=== PATIENT | female | born 1995 | race African-American/Black ===

== ENCOUNTER 2017-02-13 22:28 | Emergency (ER) | payer OTHER ==
[~2017-02-13] VITALS: Ht 167.6 cm; Wt 84.3 kg
[2017-02-13 22:31] VITALS: BP 122/79
[2017-02-13] MEDS ORDERED: SING10TA32 PO (22:40)
[2017-02-13] MEDS ORDERED: ADV250INH INH (22:40)
== END 2017-02-14 03:02 | disposition left against medical advice (07) ==
LOC: M ED 22:28
DX: N93.9 Abnormal uterine and vaginal bleeding, unspecified (principal); Z53.21 Procedure and treatment not carried out due to patient leaving prior to being seen by health care provider

== ENCOUNTER 2017-05-17 16:02 | Emergency (ER) | payer OTHER ==
[~2017-05-17] VITALS: Ht 167.6 cm; Wt 84.6 kg
[2017-05-17 16:02] VITALS: BP 133/78
[~2017-05-17 16:02] MED LIST: ADV250INH INH; SING10TA32 PO
[2017-05-17] MEDS ORDERED: CLEO300C2 PO (18:13)
[2017-05-17] MEDS ORDERED: NORCOTAB PO (18:13)
== END 2017-05-17 18:20 | disposition home or self-care (01) ==
LOC: M ED 16:02
DX: L02.31 Cutaneous abscess of buttock (principal); L73.9 Follicular disorder, unspecified; F17.200 Nicotine dependence, unspecified, uncomplicated; Z79.899 Other long term (current) drug therapy

== ENCOUNTER 2017-05-29 04:40 | Emergency (ER) | payer OTHER ==
[~2017-05-29] VITALS: Ht 167.6 cm; Wt 80.5 kg
[~2017-05-29 04:40] MED LIST changes: +CLEO300C2 PO; +NORCOTAB PO
[2017-05-29] MEDS ORDERED: IPRATROPIUM 0.5MG/ALBUTEROL 2.5MG INH SOL UD 3ML (DUONEB)(J7620) As Ordered ONE (04:56)
[2017-05-29] MEDS: IPRATROPIUM 0.5MG/ALBUTEROL 2.5MG INH SOL UD 3ML (DUONEB)(J7620) NEB SCH (05:15)
[2017-05-29 05:29] LABS: BASO % 0.5 % (0.0-1.0); EOS # 0.4 10^3/uL (0.0-0.50); EOS % 5.1 % (0.0-3.0); IMMATURE GRANULOCYTE % 0.1 % (0-0); LYMPH % 36.5 % (24.0-44.0); MEAN CORPUSCULAR HGB CONC 33.2 g/dl (32.0-36.5); MEAN CORPUSCULAR VOLUME 90.3 fl (80.0-96.0); MONO # 0.5 10^3/uL (0.0-0.8); MONO % 6.3 % (0.0-5.0); NEUTROPHILS # 4.2 10^3/uL (1.8-7.7); NEUTROPHILS % 51.5 % (36.0-66.0); PLATELET COUNT, AUTOMATED 338 10^3/uL (150-450); RED CELL DISTRIBUTION WIDTH 12.6 % (11.5-14.5); WHITE BLOOD COUNT 8.1 10^3/uL (4.0-10.0)
[2017-05-29] MEDS ORDERED: MAG SULF 1GM/100ML (MAG RUN) 1 GM in APPROPRIATE DILUENT 1 EA IV ONE (05:30)
[2017-05-29] MEDS ORDERED: methylPREDNISolone INJ 125 MG/2 ML VIAL (J2930) IV ONE (05:30)
[2017-05-29 05:42] LABS: ANION GAP 7 MEQ/L (8-16); BLOOD UREA NITROGEN 15 MG/DL (7-18); CALCIUM LEVEL 8.6 MG/DL (8.5-10.1); CARBON DIOXIDE LEVEL 27 MEQ/L (21-32); CHLORIDE LEVEL 107 MEQ/L (98-107); CREATININE FOR GFR 0.77 MG/DL (0.55-1.02); GLUCOSE, FASTING 100 MG/DL (70-105); POTASSIUM SERUM 3.7 MEQ/L (3.5-5.1); SODIUM LEVEL 141 MEQ/L (136-145)
[2017-05-29] MEDS ORDERED: PRED20TA PO (07:07)
[2017-05-29] MEDS ORDERED: ALBUTEROL 90 MCG/ACT 8GM HFA INHALER INH ONE (07:15)
[2017-05-29 07:49] VITALS: BP 160/123
--- NOTE | 2017-05-29 08:13 | ECGEPIP ---
Stationary ECG Study [facility] - ED Test Date: 2017-05-29 Pat Name: JENNY CHE Department: Room: - Gender: F Public Health Officer: mariel : 1995 Requested By: BREONNA Ibarra Order Number: [id number] Reading MD: Savanna Alfaro Measurements Intervals [place] Rate: 93 P: 28 FL: 166 QRS: 51 QRSD: 88 T: 30 QT: 355 QTc: 444 Interpretive Statements SINUS RHYTHM Electronically Signed On 05-29-2017 8:13:42 EDT by Savanna Alfaro
[2017-05-29 08:35] VITALS: O2SAT 99
--- NOTE | 2017-06-02 09:01 | REP ---
PA and lateral chest: There are no comparisons. The lung post are clear. The cardiac size is normal The [place], mediastinum, and bony thorax are unremarkable. Impression: Negative PA and lateral chest. Signed by Jamir La MD 05/29/2017 08:18 A
== END 2017-05-29 08:44 | disposition home or self-care (01) ==
LOC: M ED 04:40
DX: J45.901 Unspecified asthma with (acute) exacerbation (principal); F17.200 Nicotine dependence, unspecified, uncomplicated
CPT/HCPCS: 71020; 80048; 85025; 87040; 87804; 93005; 93041; 94640; 94760; 96374; 96375; 99285; J2930; J3475

== ENCOUNTER 2017-09-18 04:36 | Emergency (ER) | payer OTHER ==
[2017-09-18] MEDS ORDERED: dexameTHASONE 20 MG/5 ML VIAL (J1100) IV (05:00)
[2017-09-18] MEDS: IPRATROPIUM 0.5MG/ALBUTEROL 2.5MG INH SOL UD 3ML (DUONEB)(J7620) NEB ×3 (05:11)
[2017-09-18] MEDS: dexameTHASONE 20 MG/5 ML VIAL (J1100) IV (05:20)
== END 2017-09-18 06:39 | disposition home or self-care (01) ==
LOC: M ED 04:36
DX: J45.901 Unspecified asthma with (acute) exacerbation (principal); Z79.899 Other long term (current) drug therapy
CPT/HCPCS: J1100

== ENCOUNTER 2017-09-18 09:51 | Emergency (ER) | payer OTHER ==
[2017-09-18] MEDS ORDERED: ALBUTEROL 90 MCG/ACT 8GM HFA INHALER INH (10:30)
[2017-09-18] MEDS ORDERED: predniSONE 20 MG TAB PO (10:30)
[2017-09-18] MEDS ORDERED: AUGMENTIN 875 MG TAB PO (10:30)
== END 2017-09-18 10:38 | disposition home or self-care (01) ==
LOC: M ED 09:51
DX: J06.9 Acute upper respiratory infection, unspecified (principal); J01.80 Other acute sinusitis; J45.901 Unspecified asthma with (acute) exacerbation; Z79.899 Other long term (current) drug therapy
CPT/HCPCS: 99284

== ENCOUNTER 2018-03-29 00:34 | Emergency (ER) | payer OTHER ==
[2018-03-29] MEDS: diphenhydrAMINE INJ 50MG/ML VIAL (J1200) IM (00:38)
[2018-03-29] MEDS: HALOPERIDOL 5 MG/ML VIAL (J1630) IM (00:38)
[2018-03-29 01:03] LABS: HEMOGLOBIN 12.2 g/dl (12.0-15.5); MEAN CORPUSCULAR HEMOGLOBIN 27.8 pg (27.0-33.0); MEAN CORPUSCULAR HGB CONC 32.1 g/dl (32.0-36.5); MEAN CORPUSCULAR VOLUME 86.6 fl (80.0-96.0); PLATELET COUNT, AUTOMATED 305 10^3/uL (150-450); RED BLOOD COUNT 4.39 10^6/uL (4.00-5.40); RED CELL DISTRIBUTION WIDTH 15.2 % (11.5-14.5); WHITE BLOOD COUNT 7.9 10^3/uL (4.0-10.0)
[2018-03-29 01:13] LABS: CONTROL LINE HCG INT CTR LINE PRESENT; HCG, SERUM QUALITATIVE NEGATIVE (NEGATIVE)
[2018-03-29 01:30] LABS: ALBUMIN 3.8 GM/DL (3.2-5.2); ALBUMIN/GLOBULIN RATIO 1.09 (1.00-1.93); ALKALINE PHOSPHATASE 78 U/L (45-117); ALT/SGPT 19 U/L (12-78); ANION GAP 10 MEQ/L (8-16); AST/SGOT 16 U/L (7-37); BILIRUBIN,DIRECT < 0.1 MG/DL (0.0-0.2); BILIRUBIN,TOTAL 0.3 MG/DL (0.2-1.0); BLOOD UREA NITROGEN 17 MG/DL (7-18); CALCIUM LEVEL 8.7 MG/DL (8.5-10.1); CARBON DIOXIDE LEVEL 22 MEQ/L (21-32); CHLORIDE LEVEL 111 MEQ/L (98-107); CPK CREATINE PHOSPHOKINASE 358 U/L (26-192); CREATININE FOR GFR 0.85 MG/DL (0.55-1.30); ETHYL ALCOHOL (ETHANOL) 0.007 % (0.000-0.010); GLUCOSE, FASTING 118 MG/DL (70-100); POTASSIUM SERUM 3.5 MEQ/L (3.5-5.1); SALICYLATE LEVEL < 1.7 MG/DL (5.0-30.0); SODIUM LEVEL 143 MEQ/L (136-145); TOTAL PROTEIN 7.3 GM/DL (6.4-8.2)
[2018-03-29 01:31] LABS: ACETAMINOPHEN LEVEL < 2.0 UG/ML (10.0-30.0)
[2018-03-29 02:29] LABS: AMPHETAMINES LEVEL URINE NEGATIVE (NEGATIVE); BARBITURATES URINE NEGATIVE (NEGATIVE); BENZODIAZEPINES URINE NEGATIVE (NEGATIVE); CANNABINOIDS URINE POSITIVE (NEGATIVE); COCAINE METABOLITE URINE NEGATIVE (NEGATIVE); METHADONE URINE NEGATIVE (NEGATIVE); OPIATES URINE NEGATIVE (NEGATIVE); PHENCYCLIDINE URINE NEGATIVE (NEGATIVE)
== END 2018-03-29 10:51 | disposition home or self-care (01) ==
LOC: M ED 00:34
DX: F43.20 Adjustment disorder, unspecified (principal); F12.10 Cannabis abuse, uncomplicated
CPT/HCPCS: J1200

== ENCOUNTER 2018-05-09 15:35 | Emergency (ER) | payer OTHER ==
[2018-05-09] MEDS: predniSONE 20 MG TAB PO (16:07)
[2018-05-09] MEDS: ALBUTEROL SULFATE 2.5 MG/0.5 ML INH NEB SOLN NEB (16:10)
[2018-05-09] MEDS: IPRATROPIUM 0.5MG/ALBUTEROL 2.5MG INH SOL UD 3ML (DUONEB)(J7620) NEB (16:10)
== END 2018-05-09 17:15 | disposition home or self-care (01) ==
LOC: M ED 15:35
DX: J45.901 Unspecified asthma with (acute) exacerbation (principal); F90.9 Attention-deficit hyperactivity disorder, unspecified type; F31.9 Bipolar disorder, unspecified; Z79.899 Other long term (current) drug therapy; Z79.51 Long term (current) use of inhaled steroids
CPT/HCPCS: 71046

== ENCOUNTER 2018-05-19 17:26 | Emergency (ER) | payer OTHER ==
[2018-05-19 18:47] LABS: HEMATOCRIT 44.7 % (36.0-47.0); HEMOGLOBIN 14.3 g/dl (12.0-15.5); MEAN CORPUSCULAR HEMOGLOBIN 28.1 pg (27.0-33.0); PLATELET COUNT, AUTOMATED 364 10^3/uL (150-450); RED BLOOD COUNT 5.08 10^6/uL (4.00-5.40); RED CELL DISTRIBUTION WIDTH 15.1 % (11.5-14.5); WHITE BLOOD COUNT 11.6 10^3/uL (4.0-10.0)
[2018-05-19 19:06] LABS: AMPHETAMINES LEVEL URINE NEGATIVE (NEGATIVE); BARBITURATES URINE NEGATIVE (NEGATIVE); BENZODIAZEPINES URINE POSITIVE (NEGATIVE); CANNABINOIDS URINE POSITIVE (NEGATIVE); COCAINE METABOLITE URINE NEGATIVE (NEGATIVE); METHADONE URINE NEGATIVE (NEGATIVE); OPIATES URINE NEGATIVE (NEGATIVE); PHENCYCLIDINE URINE NEGATIVE (NEGATIVE)
[2018-05-19 19:17] LABS: CONTROL LINE HCG INT CTR LINE PRESENT; HCG, SERUM QUALITATIVE NEGATIVE (NEGATIVE)
[2018-05-19 20:00] LABS: ACETAMINOPHEN LEVEL < 2.0 UG/ML (10.0-30.0); ALBUMIN 3.9 GM/DL (3.2-5.2); ALKALINE PHOSPHATASE 87 U/L (45-117); ALT/SGPT 16 U/L (12-78); ANION GAP 9 MEQ/L (8-16); AST/SGOT 12 U/L (7-37); BILIRUBIN,DIRECT < 0.1 MG/DL (0.0-0.2); BILIRUBIN,TOTAL 0.2 MG/DL (0.2-1.0); BLOOD UREA NITROGEN 16 MG/DL (7-18); CALCIUM LEVEL 8.4 MG/DL (8.5-10.1); CARBON DIOXIDE LEVEL 25 MEQ/L (21-32); CHLORIDE LEVEL 109 MEQ/L (98-107); CREATININE FOR GFR 0.93 MG/DL (0.55-1.30); ETHYL ALCOHOL (ETHANOL) < 0.003 % (0.000-0.010); GLUCOSE, FASTING 82 MG/DL (70-100); POTASSIUM SERUM 3.5 MEQ/L (3.5-5.1); SALICYLATE LEVEL < 1.7 MG/DL (5.0-30.0); SODIUM LEVEL 143 MEQ/L (136-145); THYROID STIMULATING HORMONE 0.647 uIU/ML (0.463-3.98); TOTAL PROTEIN 7.8 GM/DL (6.4-8.2)
== END 2018-05-19 23:10 | disposition home or self-care (01) ==
LOC: M ED 17:26
DX: F43.0 Acute stress reaction (principal); F32.9 Major depressive disorder, single episode, unspecified; J45.909 Unspecified asthma, uncomplicated; K52.9 Noninfective gastroenteritis and colitis, unspecified; F17.200 Nicotine dependence, unspecified, uncomplicated; Z79.899 Other long term (current) drug therapy; Z79.52 Long term (current) use of systemic steroids; Z79.51 Long term (current) use of inhaled steroids
CPT/HCPCS: G0480

== ENCOUNTER 2018-06-23 20:35 | Emergency (ER) | payer OTHER ==
[2018-06-23] MEDS: dexameTHASONE 20 MG/5 ML VIAL (J1100) IV (21:20)
== END 2018-06-23 21:51 | disposition home or self-care (01) ==
LOC: M ED 20:35
DX: J45.901 Unspecified asthma with (acute) exacerbation (principal); F17.210 Nicotine dependence, cigarettes, uncomplicated; Z79.899 Other long term (current) drug therapy
CPT/HCPCS: J1100

== ENCOUNTER 2018-07-03 23:07 | Emergency (ER) | payer OTHER ==
[2018-07-04] MEDS: ALBUTEROL 90 MCG/ACT 8GM HFA INHALER INH (00:11)
== END 2018-07-04 00:12 | disposition home or self-care (01) ==
LOC: M ED 07-04 00:12
DX: F43.20 Adjustment disorder, unspecified (principal); J45.909 Unspecified asthma, uncomplicated
CPT/HCPCS: 99284

== ENCOUNTER 2018-09-06 08:44 | Emergency (ER) | payer OTHER, MEDICAID ==
[~2018-09-06] VITALS: Ht 170.2 cm; Wt 84.1 kg
[~2018-09-06 08:44] MED LIST changes: +ALBU83IN INH; +AUGM875T28 PO; +IPRA0.00 NEB; +MONT10TA2 PO; +PRED20TA PO; +VENTAER INH
[2018-09-06] MEDS ORDERED: ADV250INH INH ×2 (08:53→12:53)
[2018-09-06] MEDS ORDERED: methylPREDNISolone INJ 125 MG/2 ML VIAL (J2930) IV ONE (09:15)
[2018-09-06] MEDS: ALBUTEROL SULFATE 2.5 MG/0.5 ML INH NEB SOLN NEB PRN ×3 (09:23→09:49)
--- NOTE | 2018-09-06 09:36 | REP ---
Clinical: Cough and dyspnea . Comparison: 06/23/2018 . Technique: PA and lateral. Findings: The mediastinum and cardiac silhouette are normal. The lung post are clear and without acute consolidation, effusion, or pneumothorax. The skeletal structures are intact and normal. Impression: 1. No acute cardiopulmonary process. Electronically Signed by Teodoro Dai MD 09/06/2018 09:28 A
[2018-09-06 09:47] LABS: BASO % 0.7 % (0.0-1.0); EOS # 0.5 10^3/uL (0.0-0.50); EOS % 8.2 % (0.0-3.0); HEMOGLOBIN 14.2 g/dl (12.0-15.5); LYMPH # 2.2 10^3/uL (1.5-6.5); LYMPH % 36.3 % (24.0-44.0); MEAN CORPUSCULAR HEMOGLOBIN 28.9 pg (27.0-33.0); MEAN CORPUSCULAR HGB CONC 32.3 g/dl (32.0-36.5); MEAN CORPUSCULAR VOLUME 89.4 fl (80.0-96.0); MONO # 0.5 10^3/uL (0.0-0.8); MONO % 7.5 % (0.0-5.0); NEUTROPHILS # 2.8 10^3/uL (1.8-7.7); NEUTROPHILS % 47.1 % (36.0-66.0); PLATELET COUNT, AUTOMATED 319 10^3/uL (150-450); RED BLOOD COUNT 4.92 10^6/uL (4.00-5.40)
[2018-09-06 10:10] LABS: BLOOD UREA NITROGEN 9 MG/DL (7-18); CALCIUM LEVEL 8.9 MG/DL (8.5-10.1); CARBON DIOXIDE LEVEL 27 MEQ/L (21-32); CHLORIDE LEVEL 105 MEQ/L (98-107); CREATININE FOR GFR 0.78 MG/DL (0.55-1.30); GLUCOSE, FASTING 109 MG/DL (70-100); POTASSIUM SERUM 4.3 MEQ/L (3.5-5.1); SODIUM LEVEL 139 MEQ/L (136-145)
[2018-09-06] MEDS: IPRATROPIUM 0.5MG/ALBUTEROL 2.5MG INH SOL UD 3ML (DUONEB)(J7620) NEB PRN ×2 (12:00→12:21)
[2018-09-06] MEDS ORDERED: IPRA0.00 NEB (12:53)
[2018-09-06] MEDS ORDERED: COMP1MIS3 XX (12:53)
[2018-09-06] MEDS ORDERED: PRED20TA PO (12:53)
[2018-09-06] MEDS ORDERED: VENTAER INH (12:53)
[2018-09-06] MEDS ORDERED: SING10TA32 PO (12:53)
[2018-09-06 13:16] VITALS: BP 135/86
== END 2018-09-06 13:26 | disposition home or self-care (01) ==
LOC: M ED 08:44
DX: J45.901 Unspecified asthma with (acute) exacerbation (principal); F90.9 Attention-deficit hyperactivity disorder, unspecified type; F31.9 Bipolar disorder, unspecified; K52.9 Noninfective gastroenteritis and colitis, unspecified; Z79.899 Other long term (current) drug therapy; Z79.51 Long term (current) use of inhaled steroids
CPT/HCPCS: 36415; 71046; 80048; 85025; 94640; 96374; 99284; J2930

== ENCOUNTER 2018-09-24 20:35 | Inpatient (IN) | payer OTHER, MEDICAID ==
[~2018-09-24] VITALS: Ht 172.7 cm; Wt 82.4 kg
[~2018-09-24 20:35] MED LIST changes: +COMP1MIS3 XX
[2018-09-24] MEDS ORDERED: ALBUTEROL SULFATE 2.5 MG/0.5 ML INH NEB SOLN NEB ONE (20:45)
[2018-09-24] MEDS ORDERED: MAG SULF 1GM/100ML (MAG RUN) 1 GM in APPROPRIATE DILUENT 1 EA IV ONE (21:00)
[2018-09-24] MEDS ORDERED: BUDESONIDE 0.5 MG/2 ML INHALATION SUSPENSION INH ONE (21:00)
[2018-09-24] MEDS ORDERED: ALBUTEROL SULFATE 2.5 MG/0.5 ML INH NEB SOLN INH ONE (22:15)
[2018-09-24 22:23] LABS: BASO # 0.1 10^3/uL (0.0-0.2); EOS # 0.9 10^3/uL (0.0-0.50); EOS % 8.8 % (0.0-3.0); HEMATOCRIT 44.5 % (36.0-47.0); HEMOGLOBIN 14.2 g/dl (12.0-15.5); LYMPH # 4.2 10^3/uL (1.5-6.5); LYMPH % 42.1 % (24.0-44.0); MEAN CORPUSCULAR HEMOGLOBIN 29.5 pg (27.0-33.0); MEAN CORPUSCULAR HGB CONC 31.9 g/dl (32.0-36.5); MEAN CORPUSCULAR VOLUME 92.5 fl (80.0-96.0); MONO # 0.9 10^3/uL (0.0-0.8); NEUTROPHILS # 3.9 10^3/uL (1.8-7.7); NEUTROPHILS % 38.8 % (36.0-66.0); PLATELET COUNT, AUTOMATED 348 10^3/uL (150-450); RED BLOOD COUNT 4.81 10^6/uL (4.00-5.40); WHITE BLOOD COUNT 10.1 10^3/uL (4.0-10.0)
[2018-09-24 22:27] LABS: VENOUS BASE EXCESS -3.3 (-2.0-2.0); VENOUS HCO3 26.3 MEQ/L (23.0-27.0); VENOUS O2 SATURATION 73.6 % (60.0-80.0); VENOUS PARTIAL PRESSURE CO2 67.3 mmHg (38.0-50.0); VENOUS PARTIAL PRESSURE O2 49.5 mmHg (30.0-50.0); VENOUS PH 7.209 UNITS (7.330-7.430); VENOUS STANDARD HCO3 21.1 MEQ/L; VENOUS TOTAL CO2 28.3 MEQ/L (24.0-28.0)
[2018-09-24] MEDS ORDERED: VENTAER INH (22:27)
[2018-09-24] MEDS ORDERED: IPRA0.00 INH (22:27)
[2018-09-24 22:29] LABS: BLOOD UREA NITROGEN 12 MG/DL (7-18); CALCIUM LEVEL 9.1 MG/DL (8.5-10.1); CARBON DIOXIDE LEVEL 28 MEQ/L (21-32); CHLORIDE LEVEL 106 MEQ/L (98-107); GLUCOSE, FASTING 96 MG/DL (70-100); POTASSIUM SERUM 4.7 MEQ/L (3.5-5.1); SODIUM LEVEL 139 MEQ/L (136-145)
[2018-09-24] MEDS ORDERED: PRED20TA PO (22:30)
[2018-09-24] MEDS ORDERED: MONT10TA2 PO (22:30)
[2018-09-24 23:24] LABS: ABG BASE EXCESS -2.4 (-2.0-2.0); ABG HCO3 23.6 MEQ/L (22.0-26.0); ABG O2 SATURATION 94.2 % (95.0-99.0); ABG PARTIAL PRESSURE O2 74.7 mmHg (75.0-100.0); ABG STANDARD HCO3 22.4 MEQ/L (22.0-26.0); ABG pH (ARTERIAL) 7.338 UNITS (7.350-7.450)
[2018-09-25] VITALS (12 sets, daily range): BP systolic 119–151; BP diastolic 59–80; O2SAT 93–99
[2018-09-25] MEDS: ADVAIR HFA 115/21MCG INHALER INH SCH ×3 (00:12→20:29)
[2018-09-25] MEDS ORDERED: GLUCAGON FOR INJ 1 MG VIAL (J1610) SC PRN (00:15)
[2018-09-25] MEDS ORDERED: ALBUTEROL SULFATE 2.5 MG/0.5 ML INH NEB SOLN NEB PRN (00:15)
[2018-09-25] MEDS ORDERED: GLUCOSE 4 GM CHEW TABLET PO PRN (00:15)
[2018-09-25] MEDS ORDERED: DEXTROSE 50% 50 ML SYRINGE IV PRN (00:15)
[2018-09-25] MEDS ORDERED: ACETAMINOPHEN TAB 650MG DOSE (2X325MG) PO PRN (00:15)
[2018-09-25] MEDS: methylPREDNISolone INJ 125 MG/2 ML VIAL (J2930) IV SCH ×4 (00:19→18:23)
[2018-09-25] MEDS: HumaLOG INSULIN (NovoLOG) PER UNIT SC SCH ×5 (00:47→18:23)
[2018-09-25 02:00] LABS: ABG BASE EXCESS -2.9 (-2.0-2.0); ABG HCO3 21.8 MEQ/L (22.0-26.0); ABG O2 SATURATION 91.2 % (95.0-99.0); ABG PARTIAL PRESSURE O2 63.7 mmHg (75.0-100.0); ABG STANDARD HCO3 21.9 MEQ/L (22.0-26.0); ABG pH (ARTERIAL) 7.377 UNITS (7.350-7.450)
--- NOTE | 2018-09-25 02:14 | REP ---
Clinical: Cough and dyspnea . Comparison: 09/06/2018 . Findings: The mediastinum and cardiac silhouette are stable and within normal limits for portable technique. The lung post are clear without acute consolidation, effusion, or pneumothorax. Skeletal structures are intact. Impression: No acute cardiopulmonary process appreciated. Electronically Signed by Teodoro Dai MD 09/25/2018 02:04 A
[2018-09-25] MEDS ORDERED: INFLUENZA QUADRIVALENT PF VACCINE 0.5ML SYRINGE (90686) IM SCH (03:45)
[2018-09-25] MEDS: IPRATROPIUM 0.5MG/ALBUTEROL 2.5MG INH SOL UD 3ML (DUONEB)(J7620) NEB SCH ×6 (04:28→23:13)
[2018-09-25] MEDS: HEPARIN SOD (PORCINE) 5000 UNITS/ML VIAL SC SCH ×3 (05:59→22:00)
--- NOTE | 2018-09-25 07:03 | HPE ---
DATE OF ADMISSION: 09/25/2018 CHIEF COMPLAINT: Progressively worsening dyspnea on exertion over the past two weeks and nonproductive cough. HISTORY OF PRESENT ILLNESS: The patient is a 22-year-old female. She has a significant past medical history of severe persistent asthma. Also, she states she has colitis. I am unclear if she actually has history of colitis. She is not on any medications. She has never had a colonoscopy. She presents to the emergency room she states with worsening dyspnea on exertion, worsening respiratory status progressively worsening over the last two weeks. She states she ran out of her medication and came to the emergency room which did nebulizers two weeks ago. She was given refills for her medication, all except the Singulair. Her symptoms improved temporarily and continued to worsen with nonproductive cough, shortness of breath and wheezing. She presented to Urgent Care two days ago and was given her Singulair and again sent home. She is back to the emergency room tonight, again, with worsening respiratory status, worsening dyspnea, wheezing and nonproductive cough. No fevers or chills. Respiratory panel is negative for the flu. She states she uses her inhaler almost multiple times a day. She gets multiple night time awakening per week. Asthma is clearly not under control. She has never been intubated. Notably in her history, she has recently brought pets into her home. She has kittens, which likely might be the trigger for her worsening asthma. She denies any abdominal pain, constipation, diarrhea or urinary symptoms. She does endorse chest tightness, but no chest pain. PAST MEDICAL HISTORY: See history of present illness (HPI). PAST SURGICAL HISTORY: None. ALLERGIES: No known drug allergies. SOCIAL HISTORY: Former smoker. Denies alcohol or illicit drug use. FAMILY HISTORY: Noncontributory. HOME MEDICATIONS: - albuterol - Advair - Singulair REVIEW OF SYSTEMS: A 12-point review of systems was completed, all of which were negative except those listed in the HPI. ADMISSION VITAL SIGNS: Temperature 99, pulse 144, respirations 28, blood pressure 163/82, satting at 96% on 2 liters nasal cannula. PHYSICAL EXAMINATION: General: She is tachypneic in mild respiratory distress. Head is normocephalic, atraumatic. Eyes: Extraocular movements are intact. Pupils equal, round and reactive to light. Neck is supple. No jugular venous pulse (JVP). Lungs: Diffuse wheezing. Use of accessory muscles of respirations. Notably tachypneic. Cardiovascular: Tachycardiac. Normal S1 and S2. No murmurs, gallops or rub. The abdomen is soft, nontender, nondistended. Positive bowel sounds. No rebound. No guarding. Extremities: No pitting edema or calf tenderness. Skin is intact. No rashes, lesions or breakdowns. Neurological Exam: She is alert and oriented times three with no focal deficits. LABS AND IMAGING DONE IN THE EMERGENCY ROOM: White count 10, hemoglobin/hematocrit (H/H) 14/44, platelet count 348. Blood gas after treatment with nebulizers, Solu-Medrol and magnesium, were 7.33/45/74/23/94. Chemistries: BUN and creatinine of 12 over 0.8. Respiratory panel was negative. Chest x-ray shows some scarring, hyperinflation, but no acute disease. ASSESSMENT AND PLAN: 1. Acute respiratory failure with hypoxia, likely secondary to acute asthma exacerbation and severe asthma exacerbation. The knowledge architect was asked to evaluate the patient and made a recommendation for continuous Heliox 70/30. She is also going to get nebulizers, Heliox driven nebulizers, oxygen as needed, Solu-Medrol 60 every 6 and insulin sliding scale while on Solu-Medrol. Baseline peak flow, she is unaware of. She will get daily peak flows. Albuterol as needed every hour. I believe the patient needs to be followed closely. Will repeat her blood gas in 3 hours. The patient was spoken to about the prospects of intubation. She is extremely tachypneic. Normalizing her PcO2 within the case of asthma is a poor prognosis. She was made aware of the situation and will be monitored closely in the intensive care unit. Pulmonary critical care team is aware. 2. Colitis, unspecified. I am unclear if this is a true diagnosis. She has never had a colonoscopy. Will continue to follow the patient. She is not on any medications. 3. Supportive deep vein thrombosis (DVT) prophylaxis. Heparin subcutaneous. 4. Gastrointestinal (GI) prophylaxis. Protonix while on high dose steroids. 5. Diet. Regular. 6. To be admitted to the intensive care unit. .
[2018-09-25 09:18] LABS: HEMATOCRIT 44.3 % (36.0-47.0); HEMOGLOBIN 14.6 g/dl (12.0-15.5); MEAN CORPUSCULAR HEMOGLOBIN 29.6 pg (27.0-33.0); MEAN CORPUSCULAR VOLUME 89.7 fl (80.0-96.0); PLATELET COUNT, AUTOMATED 376 10^3/uL (150-450); RED BLOOD COUNT 4.94 10^6/uL (4.00-5.40); WHITE BLOOD COUNT 12.4 10^3/uL (4.0-10.0)
[2018-09-25 09:43] LABS: ALBUMIN 4.3 GM/DL (3.2-5.2); ALT/SGPT 23 U/L (12-78); BILIRUBIN,TOTAL 0.3 MG/DL (0.2-1.0); BLOOD UREA NITROGEN 16 MG/DL (7-18); CARBON DIOXIDE LEVEL 24 MEQ/L (21-32); CHLORIDE LEVEL 103 MEQ/L (98-107); CREATININE FOR GFR 0.84 MG/DL (0.55-1.30); GLUCOSE, FASTING 122 MG/DL (70-100); POTASSIUM SERUM 4.5 MEQ/L (3.5-5.1); SODIUM LEVEL 136 MEQ/L (136-145); TOTAL PROTEIN 8.3 GM/DL (6.4-8.2)
[2018-09-25] MEDS: MONTELUKAST 10 MG TAB PO SCH (09:57)
--- NOTE | 2018-09-25 21:53 | IPNPDOC ---
Text Note Date of Service The patient was seen on 09/25/18. NOTE S: pt examiend at bedside. States she felt chest tightness and short of breath since getting a new cat 2 weeks ago, and lives at home with active smoker roommates, and also has a noé and dirty living environment. Was started on Heliox last night and IV steroids, tolerating well and feeling better today. PE: General: sitting up in bed wearing venti mask, able to converse in full sentences. A&Ox3, NAD HEENT: NCAT, EOMI, MMM, supple neck, no adenopathy CV: regular rhythm, tachycardic, No murmurs Pulm: Diffuse wheezing, prolonged expiratory phase. Abd: soft NT, ND. +bs MSK: able to move all extremities Skin: no visible rashes or lesions Neuro: no focal deficits A/P: Acute asthma exacerbation: recent exposure to possible triggers-tobacco, cat, house dust continue IV steroids, nebs, Singulair, and titrate down supplemental O2. ABG improved this am after Heliox. Pulm following. Appreciate input. Leukocytosis likely 2/2 steroids. Afebrile, clinically improving. Blood cx pending. Resp panel neg. DVT ppx: heparin sc DISPO: continue close monitoring. Pending clinical improvement. VS,Fishbone, I+O VS, Fishbone, I+O Laboratory Tests 09/25/18 08:50 Red Blood Count 4.94, Mean Corpuscular Volume 89.7, Mean Corpuscular Hemoglobin 29.6, Mean Corpuscular Hemoglobin Concent 33.0, Red Cell Distribution Width 14.5, Calcium Level 10.0, Aspartate Amino Transf (AST/SGOT) 18, Alanine Aminotransferase (ALT/SGPT) 23, Alkaline Phosphatase 87, Total Bilirubin 0.3, Total Protein 8.3 H, Albumin 4.3 Vital Signs Date Time Temp Pulse Resp B/P (MAP) Pulse Ox O2 Delivery O2 Flow Rate FiO2 09/25/18 16:14 98.0 112 22 122/65 (84) 100 2.0 09/25/18 14:19 Nasal Cannula 09/25/18 06:00 80 I&O- Last 24 Hours up to 6 AM 09/25/18 06:00 Intake Total 0 ml Output Total 250 ml Balance -250 ml GME ATTESTATION GME ATTESTATION My faculty preceptor for this patient encounter was physically present during the encounter and was fully available. All aspects of the patient interview, examination, medical decision making process, and medical care plan development were reviewed and approved by the faculty preceptor. The faculty preceptor is aware and concurs with the plan as stated in the body of this note and will attest to such by his/her cosignature. NNEKA MCCORMICK DO Sep 25, 2018 21:53
[2018-09-26] VITALS (8 sets, daily range): BP systolic 113–140; BP diastolic 56–82; O2SAT 95–99
[2018-09-26] MEDS: methylPREDNISolone INJ 125 MG/2 ML VIAL (J2930) IV SCH ×2 (01:19→06:22)
[2018-09-26] MEDS: IPRATROPIUM 0.5MG/ALBUTEROL 2.5MG INH SOL UD 3ML (DUONEB)(J7620) NEB SCH ×5 (04:13→16:52)
[2018-09-26 05:19] LABS: HEMATOCRIT 40.7 % (36.0-47.0); HEMOGLOBIN 13.3 g/dl (12.0-15.5); MEAN CORPUSCULAR HEMOGLOBIN 29.7 pg (27.0-33.0); MEAN CORPUSCULAR HGB CONC 32.7 g/dl (32.0-36.5); MEAN CORPUSCULAR VOLUME 90.8 fl (80.0-96.0); PLATELET COUNT, AUTOMATED 313 10^3/uL (150-450); RED BLOOD COUNT 4.48 10^6/uL (4.00-5.40); WHITE BLOOD COUNT 20.2 10^3/uL (4.0-10.0)
[2018-09-26 05:37] LABS: BLOOD UREA NITROGEN 18 MG/DL (7-18); CALCIUM LEVEL 8.7 MG/DL (8.5-10.1); CARBON DIOXIDE LEVEL 24 MEQ/L (21-32); CHLORIDE LEVEL 105 MEQ/L (98-107); GLUCOSE, FASTING 129 MG/DL (70-100); SODIUM LEVEL 137 MEQ/L (136-145)
[2018-09-26] MEDS: HEPARIN SOD (PORCINE) 5000 UNITS/ML VIAL SC SCH ×3 (06:00→21:06)
[2018-09-26] MEDS: HumaLOG INSULIN (NovoLOG) PER UNIT SC SCH ×4 (06:00→17:30)
[2018-09-26] MEDS: ADVAIR HFA 115/21MCG INHALER INH SCH ×2 (07:56→18:47)
[2018-09-26] MEDS: predniSONE 20 MG TAB PO SCH (09:26)
[2018-09-26] MEDS: MONTELUKAST 10 MG TAB PO SCH (09:26)
--- NOTE | 2018-09-26 14:41 | IPNPDOC ---
Text Note Date of Service The patient was seen on 09/26/18. NOTE S: pt examined at bedside. No events overnight. Is feeling better today, no l onger on supplemental O2. Still feeling wheezy, but overall close to baseline. States she felt chest tightness and short of breath since getting a new cat 2 weeks ago, and lives at home with active smoker roommates, and also has a noé and dirty living environment. Was started on Heliox last night and IV steroids, tolerating well and feeling better today. PE: General: sitting up in bed, able to converse in full sentences. A&Ox3, NAD HEENT: NCAT, EOMI, MMM, supple neck, no adenopathy CV: RRR, No murmurs Pulm: expiratory wheezing improved from yesterday, no r/r Abd: soft NT, ND. +bs MSK: able to move all extremities Skin: no visible rashes or lesions Neuro: no focal deficits A/P: Acute asthma exacerbation: recent exposure to possible triggers-tobacco, cat, house dust. Recommend o/p allergy testing no longer requiring supplemental O2. Will switch from IV to po steroid taper. Continue nebs and Singulair Pulm consulted, appreciate input. Will require o/p f/u as she does not currently follow with Director Of Clinical Applications Leukocytosis likely 2/2 steroids and unlikely infectious. Afebrile, clinically improving. Blood cx & resp panel neg. Monitor DVT ppx: heparin sc DISPO: Pending clinical improvement. Will downgrade to PCU. Likely d/c tomorrow. VS,Fishbone, I+O VS, Fishbone, I+O Laboratory Tests 09/26/18 04:47 Red Blood Count 4.48, Mean Corpuscular Volume 90.8, Mean Corpuscular Hemoglobin 29.7, Mean Corpuscular Hemoglobin Concent 32.7, Red Cell Distribution Width 14.7 H, Calcium Level 8.7 Vital Signs Date Time Temp Pulse Resp B/P (MAP) Pulse Ox O2 Delivery O2 Flow Rate FiO2 09/26/18 12:00 98.6 107 20 124/68 (86) 97 09/26/18 04:00 Room Air 09/25/18 16:14 2.0 09/25/18 06:00 80 I&O- Last 24 Hours up to 6 AM 09/26/18 06:00 Intake Total 960 ml Output Total 600 ml Balance 360 ml GME ATTESTATION GME ATTESTATION My faculty preceptor for this patient encounter was physically present during the encounter and was fully available. All aspects of the patient interview, examination, medical decision making process, and medical care plan development were reviewed and approved by the faculty preceptor. The faculty preceptor is aware and concurs with the plan as stated in the body of this note and will attest to such by his/her cosignature. NNEKA MCCORMICK DO Sep 26, 2018 14:41
[2018-09-26] MEDS ORDERED: HumaLOG INSULIN (NovoLOG) PER UNIT SC SCH (21:00)
[2018-09-27] MEDS: IPRATROPIUM 0.5MG/ALBUTEROL 2.5MG INH SOL UD 3ML (DUONEB)(J7620) NEB SCH ×4 (04:00→10:55)
[2018-09-27] MEDS: HEPARIN SOD (PORCINE) 5000 UNITS/ML VIAL SC SCH (05:27)
[2018-09-27 06:00] VITALS: BP 104/60
[2018-09-27 06:23] LABS: HEMATOCRIT 39.4 % (36.0-47.0); HEMOGLOBIN 12.7 g/dl (12.0-15.5); MEAN CORPUSCULAR HEMOGLOBIN 29.4 pg (27.0-33.0); MEAN CORPUSCULAR HGB CONC 32.2 g/dl (32.0-36.5); MEAN CORPUSCULAR VOLUME 91.2 fl (80.0-96.0); PLATELET COUNT, AUTOMATED 297 10^3/uL (150-450); RED BLOOD COUNT 4.32 10^6/uL (4.00-5.40)
[2018-09-27 06:44] LABS: BLOOD UREA NITROGEN 21 MG/DL (7-18); CALCIUM LEVEL 8.5 MG/DL (8.5-10.1); CARBON DIOXIDE LEVEL 28 MEQ/L (21-32); CHLORIDE LEVEL 104 MEQ/L (98-107); CREATININE FOR GFR 0.73 MG/DL (0.55-1.30); GLUCOSE, FASTING 91 MG/DL (70-100); POTASSIUM SERUM 4.1 MEQ/L (3.5-5.1); SODIUM LEVEL 137 MEQ/L (136-145)
[2018-09-27] MEDS: HumaLOG INSULIN (NovoLOG) PER UNIT SC SCH (07:13)
[2018-09-27] MEDS ORDERED: PRED10TA2 PO (07:37)
[2018-09-27] MEDS: ADVAIR HFA 115/21MCG INHALER INH SCH (08:10)
[2018-09-27] MEDS: MONTELUKAST 10 MG TAB PO SCH (08:36)
[2018-09-27] MEDS: predniSONE 20 MG TAB PO SCH (08:37)
--- NOTE | 2018-09-27 10:16 | DS.PDOC ---
Discharge Summary General Date of Admission Sep 25, 2018 at 00:04 Date of Discharge 09/27/18 Attending Physician: JUDITH AKBAR MD Specialist/Consultants Involve: Crista COUGHLIN MD Discharge Summary PROCEDURES PERFORMED DURING STAY: None. ADMITTING DIAGNOSES: 1. Acute asthma exacerbation DISCHARGE DIAGNOSES: 1. Acute respiratory failure 2/2 asthma exacerbation 2. Leukocytosis likely 2/2 steroids COMPLICATIONS/CHIEF COMPLAINT: Acute Asthma Exacerbation. HISTORY OF PRESENT ILLNESS: 22-year-old female presented to ER for progressively worsening dyspnea on exertion over the past 2 weeks, associated nonproductive cough. She states she ran out of her medications and nebulizers. Also positive exposures to secondhand smoke and dust at her apartment, in addition to getting a new cat in the past 2 weeks. . panel negative for flu. No previous history of being intubated, however she states she had been in the ICU due to her asthma flareups in the past as well. HOSPITAL COURSE: Patient was admitted, circuit clerk was consulted. She was started on heliox 70/30, given nebulizers, IV steroids, and insulin sliding scale started due to steroids. Patient was admitted to ICU with close monitoring. She improved the next morning, switch from heliox to nasal cannula. On second day, she is back on room air and feeling much improved. No consultations during her stay. Patient was counseled on avoiding possible asthma triggers, and close follow-up in outpatient setting with pulmonology and to seek allergy testing as well. She is to return to ER for emergency, continue her nebulizers, and prednisone taper. Of note, her white count rusty from 10-20 over her hospitalization, however blood cultures and resp panel were negative and she was afebrile. Likely was 2/2 steroids. DISCHARGE MEDICATIONS: Please see below. ALLERGIES: Please see below. PHYSICAL EXAMINATION ON DISCHARGE: VITAL SIGNS: Please see below. GENERAL: NAD, A&Ox3 HEENT: nc, at, EOMI NECK: supple, no JVD CARDIOVASCULAR EXAMINATION: RRR, normal S1 S2 RESPIRATORY EXAMINATION: Mild wheezing throughout, prolonged expiratory phase. No rhonchi or rales ABDOMINAL EXAMINATION: soft, nt/nd, normoactive bowel sounds EXTREMITIES: 2+ pulses b/l, no cyanosis or edema SKIN: no visible rash or lesions, warm, dry NEUROLOGICAL EXAMINATION: no focal deficits, able to move all extremities LABORATORY DATA: Please see below. IMAGIN09/24/2018 CXR: No acute cardiopulmonary process appreciated. PROGNOSIS: good ACTIVITY: As tolerated. DIET: As tolerated DISPOSITION: home DISCHARGE INSTRUCTIONS: 1. Follow up with PCP within 1 week, with home in 2 weeks 2. Continue prednisone taper, and seek outpatient allergy testing for possible triggers 3. Return to ER for emergency DISCHARGE CONDITION: Stable. TIME SPENT ON DISCHARGE: Greater than 35 minutes. Vital Signs/I&Os Vital Signs Date Time Temp Pulse Resp B/P (MAP) Pulse Ox O2 Delivery O2 Flow Rate FiO2 09/27/18 06:00 97.0 70 18 104/60 (75) 100 09/26/18 21:00 Room Air 09/25/18 16:14 2.0 09/25/18 06:00 80 I&O- Last 24 Hours up to 6 AM0 09/27/18 06:00 Intake Total 810 ml Output Total 200 ml Balance 610 ml Laboratory Data Labs 24H Laboratory Tests 2 09/26/18 12:10: Bedside Glucose (Misc Panel) 102 09/26/18 17:00: Bedside Glucose (Misc Panel) 137H 09/26/18 20:40: Bedside Glucose (Misc Panel) 138H 09/27/18 06:04: Nucleated Red Blood Cells % (auto) 0.0, Anion Gap 5L, Blood Urea Nitrogen 21H, Creatinine 0.73, Sodium Level 137, Potassium Level 4.1, Chloride Level 104, Carbon Dioxide Level 28, Calcium Level 8.5 CBC/BMP Laboratory Tests 09/27/18 06:04 Red Blood Count 4.32, Mean Corpuscular Volume 91.2, Mean Corpuscular Hemoglobin 29.4, Mean Corpuscular Hemoglobin Concent 32.2, Red Cell Distribution Width 14.6 H, Calcium Level 8.5 FSBS Laboratory Tests Test 09/26/18 12:10 09/26/18 17:00 09/26/18 20:40 Range/Units Bedside Glucose (Misc Panel) 102 137 138 70-105 MG/DL Microbiology Microbiology 09/25/18 Blood Culture - Preliminary, Resulted No Growth after 48 hours. All Specime... 09/24/18 Blood Culture - Preliminary, Resulted No Growth after 48 hours. All Specime... 09/24/18 Respiratory Virus Panel (PCR) ([facility]) - Final, Complete Discharge Medications Scheduled Albuterol/Ipratropium (Ipratropium [place]/Albut 0.5-2.5 (3) mg/3Ml) 1 [place], 1 VIAL INH QID, (Reported) Montelukast Sodium (Montelukast Sodium) 10 Mg Tab, 10 MG PO DAILY, (Reported) Prednisone (Prednisone) 10 Mg Tab, 10 MG PO TAPER Take 4 tabs daily x 2 days, then 3 tabs daily x 3 days, then 2 tabs daily x 3 days, then 1 tab daily x 3 days and stop Salmeterol/Fluticasone (Advair Diskus 250-50 Mcg/Dose) 14 Puff/Inhaler Aerp, 1 PUFF INH BID, (Reported) Scheduled PRN Albuterol Sulfate (Ventolin Hfa) 108 Mcg/Act Aer, 2 PUFFS INH Q4H PRN for SHORTNESS OF BREATH, (Reported) Prednisone (Prednisone) 20 Mg Tab, 60 MG PO DAILY PRN for ASTHMA, (Reported) Allergies Coded Allergies: No Known Allergies (Unverified , 07/03/18) GME ATTESTATION GME ATTESTATION My faculty preceptor for this patient encounter was physically present during the encounter and was fully available. All aspects of the patient interview, examination, medical decision making process, and medical care plan development were reviewed and approved by the faculty preceptor. The faculty preceptor is aware and concurs with the plan as stated in the body of this note and will attest to such by his/her cosignature. NNEKA MCCORMICK DO Sep 27, 2018 10:16
[2018-09-27] MEDS ORDERED: MONT10TA2 PO (10:30)
--- NOTE | 2018-09-27 12:38 | CR ---
DATE OF CONSULTATION: 09/27/2018 I was asked by Dr. Rashid to evaluate Ms. Huston for asthma recommendations. HISTORY OF PRESENT ILLNESS: Ms. Huston, who likes to go by Rosibel, is a 22-year-old -[place] female who presented to the emergency department on 09/25/2018 with significant shortness of breath. At that time, she had a nonproductive cough. She did not have fevers; however, she has noted that since June she has had gradual worsening of respiratory symptoms. She had been experiencing paroxysmal nocturnal dyspnea for months. She had been using a rescue bronchodilator MDI and had been using it a rate of 1 to 2 weeks. She was using a rescue bronchodilator nebulizer at least twice a day. She has been coming to the emergency department about every 2 weeks starting in May because of respiratory symptoms. On presentation to the emergency department this time, she was in respiratory distress. She was treated with multiple nebulizations, Solu-Medrol, and budesonide nebulization. Her respiratory rate had been in the high 20s to 30 range and despite this her PCO2 was 45. I initially was asked to at least be aware of her for possible intubation. When I saw her, she was using accessory muscle usage and had diffuse inspiratory and expiratory wheezing. She could speak in short sentences. She also appeared very anxious. I had recommended Heliox, as her oxygen needs were not very high, as a temporizing measure until the systemic corticosteroids could take effect. Fortunately, this was successful and by the morning of 09/25/2018 she is feeling much better. Yesterday, she was able to be changed over to oral corticosteroids and transferred to the floor and today she is ready for discharge. We were officially consulted yesterday. At her baseline, Rosibel notes some dyspnea on exertion. She often has a dry cough. She has nasal congestion and postnasal drip. She has been experiencing paroxysmal nocturnal dyspnea for months, perhaps even up to 2 years. She has chest tightness and wheezing. She has been on Advair 250/50 one puff twice daily, but despite that was using her rescue MDI several times per day, as well as using her rescue nebulizer on occasion. She tells me her symptoms worsened in June when she moved to a new residence. It was at that time that she started living with her boyfriend and also some roommates. They all rent the facility. Unfortunately, some of her roommates smoke inside. She feels that the smoke comes into her room through the ventilation and she can smell it in her room despite opening her windows. While Rosibel had a cat at her previous residence, she has learned to live with cats and washes them at least once per month. More recently, her roommates obtained kittens and they do not wash them. She also states it is "cheap" cat litter, which bothers her. Traditionally, her triggers have been environmental with symptoms triggered at certain seasonal times, as well as pet dander, dust and cigarette smoke. She also has difficulty with change in seasons. She has no history of eczema. She has never been allergy tested nor has she had immunotherapy. She has been to the emergency room multiple times in her life but has never been hospitalized until now. She was initially diagnosed with asthma around age 7. PAST MEDICAL HISTORY: 1. Asthma, diagnosed at around age 7. A. Status post intensive care unit (ICU) hospitalization September 2018. B. No intubation. C. Multiple emergency department visits. 2. Colitis, per chart. 3. Postnasal drip. ALLERGIES: No known drug allergies. MEDICATIONS: On admission: - albuterol MDI two puffs every 4 hours as needed - DuoNeb one four times a day (recent prescription) - montelukast 10 mg by mouth daily (recent prescription) - Advair 250/50 - prednisone taper from one of her emergency department visits SOCIAL HISTORY: Rosibel recently moved in with her boyfriend. She does not smoke. He smoked but did quit. Rosibel smoked in the past. She does not use drink alcohol or use street drugs. She previously worked at the [employer] in [place]. 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 FAMILY HISTORY: Her mother has a history of stomach cancer. REVIEW OF SYSTEMS: As per history of present illness. Remainder of pertinent review of systems are negative. PHYSICAL EXAMINATION: GENERAL: Ms. Huston is sitting on the edge of the bed in no acute distress. She can complete full sentences. No cough throughout the evaluation. VITAL SIGNS: Temperature 97, pulse 70, respiratory rate 18, blood pressure 104/60 with a mean arterial pressure of 75. SpO2 100% on room air. HEENT: Anicteric. Nares patent bilaterally. Moist mucosa. Oropharynx is clear. No lesions. Good dentition. Mallampati 3 to 4. Face is normal. NECK: Supple. Without jugular venous distention (JVD). Without thyromegaly or masses. Trachea is midline. LYMPHATICS: Without cervical or supraclavicular lymphadenopathy. CHEST: Normal shape. LUNGS: Symmetric excursion. Good air entry. No wheeze, rhonchi or crackle on tidal excursion with scattered end expiratory wheezes noted on forced maneuver. Normal I:E with mild prolongation on force maneuver. No accessory muscle usage or retractions. Normal percussion. Normal palpation. CARDIOVASCULAR: Regular rate and rhythm. Normal S1, S2. No murmur, rub or gallop appreciated. ABDOMEN: Positive bowel sounds. Soft, nondistended. Mild generalized tenderness (thought secondary to coughing). No rebound or guarding. No hepatosplenomegaly or masses appreciated. EXTREMITIES: Without clubbing, cyanosis or edema. Strong radial pulses bilaterally. No calf tenderness. LABORATORY DATA: CBC from today showed a hemoglobin of 12.7, hematocrit 39.4, platelet count 297,000. White blood cell count 20,000 (on prednisone). Chemistry showed a sodium of 137, potassium 4.1, chloride 104, bicarbonate 28, anion gap 5, BUN 21, creatinine 0.7, glucose 91, calcium 8.5. Her last arterial blood gas was on 09/25/2018, which was 7.38/38/64 with a measured saturation of 91% and a base excess of -2.9. I am not certain how much oxygen this was drawn on. I believe she was on Heliox at that time. I reviewed her chest x-ray, as well as the report from 09/24/2018. That x-ray showed small appearing cardiac silhouette with normal appearing mediastinal regions. Normal appearing hilar regions. No acute infiltrates. There is evidence of hyperinflation. ASSESSMENT: 1. Asthma exacerbation. I suspect that this is multifactorial. The significant portion being out of control for a long period of time, it would then only take a small perturbation to cause her to go into a full blown exacerbation. I suspect that a lot of the significant worsening may have been secondary to the cats in the household. 2. Asthma, poorly controlled at baseline. 3. Postnasal drip. 4. Colitis, per chart. RECOMMENDATIONS: 1. Agree that she is ready for discharge on prednisone taper. 2. I feel it is reasonable to send her home on her current regimen, as anything we started in the hospital may not par with her insurance; however, I would like to see her in the next 1 to 2 weeks in the clinic. 3. I discussed with Rosibel that most likely we would increase the amount of inhaled cortical steroid and add an LAMA to her therapy. We will also draw an IgA, RAST. 4. Her original CBC on presentation did show eosinophilia at 8.8% with an absolute eosinophil count of 900. This was drawn when she was on prednisone taper (Complete CBC from that day showed a hemoglobin of 14.2, hematocrit 44.5, platelet count 348,000, white blood cell count 10,100 with a differential of 39% neutrophils, 42% lymphocytes, 9% monocytes, 8.8% eosinophils); of note, I would have anticipated her lymphocytes would have been lower if she had been on systemic corticosteroids. 5. I briefly discussed with Rosibel the importance of attending clinic visits, I suspect that she will be a candidate for some of the newer agents should we not be able to control her on conventional therapy and environmental modification.
== END 2018-09-27 11:06 | disposition home or self-care (01) | DRG 202 ==
LOC: M ED 20:35 → M ED INP 09-25 00:04 → M ICU 09-25 01:49 → M MSPAV 09-26 16:28
PROVIDERS: ADMIT Internal Medicine; ATTEND Internal Medicine
DX: J45.901 Unspecified asthma with (acute) exacerbation (principal); J96.01 Acute respiratory failure with hypoxia; D72.829 Elevated white blood cell count, unspecified; Z79.899 Other long term (current) drug therapy; K52.9 Noninfective gastroenteritis and colitis, unspecified; Z87.891 Personal history of nicotine dependence

== ENCOUNTER → 2018-10-04 | Outpatient (REF) | payer OTHER, MEDICAID ==
[~2018-10-04] MED LIST changes: +IPRA0.00 INH; +PRED10TA2 PO
[2018-10-04 18:45] LABS: APPEARANCE, URINE HAZY (CLEAR); BACTERIA, URINE AUTO NEGATIVE (NEGATIVE); BILIRUBIN, URINE AUTO NEGATIVE (NEGATIVE); BLOOD, URINE BLOOD NEGATIVE (NEGATIVE); COLOR, URINE YELLOW (YELLOW); GLUCOSE, URINE (UA) AUTO NEGATIVE (NEGATIVE); KETONE, URINE AUTO NEGATIVE (NEGATIVE); LEUKOCYTE ESTERASE, URINE AUTO NEGATIVE (NEGATIVE); MUCUS, URINE SMALL (NEGATIVE); NITRITE, URINE AUTO NEGATIVE (NEGATIVE); PROTEIN, URINE AUTO NEGATIVE (NEGATIVE); RBC, URINE AUTO 1 /HPF (0-3); SPECIFIC GRAVITY URINE AUTO 1.019 (1.002-1.035); SQUAMOUS EPITHELIAL CELL UR AU 5 /HPF (0-6); UROBILINOGEN, URINE AUTO 0.2 mg/dL (0.0-2.0); WBC, URINE AUTO 2 /HPF (0-3)
== END ==
LOC: M LAB REF 16:35
PROVIDERS: ATTEND Family Medicine
DX: Z00.01 Encounter for general adult medical examination with abnormal findings (principal); R14.0 Abdominal distension (gaseous); K59.09 Other constipation

== ENCOUNTER 2018-10-30 22:25 | Inpatient (IN) | payer OTHER, MEDICAID ==
[~2018-10-30] VITALS: Ht 170.2 cm; Wt 84.7 kg
[2018-10-30] MEDS ORDERED: MAG SULF 1GM/100ML (MAG RUN) 1 GM in APPROPRIATE DILUENT 1 EA IV ONE (22:45)
[2018-10-30] MEDS ORDERED: methylPREDNISolone INJ 125 MG/2 ML VIAL (J2930) IV ONE (22:45)
[2018-10-30] MEDS: IPRATROPIUM 0.5MG/ALBUTEROL 2.5MG INH SOL UD 3ML (DUONEB)(J7620) NEB PRN (22:54)
[2018-10-30 23:01] LABS: HEMATOCRIT 44.3 % (36.0-47.0); MEAN CORPUSCULAR HEMOGLOBIN 28.6 pg (27.0-33.0); MEAN CORPUSCULAR HGB CONC 31.6 g/dl (32.0-36.5); MEAN CORPUSCULAR VOLUME 90.6 fl (80.0-96.0); PLATELET COUNT, AUTOMATED 478 10^3/uL (150-450); RED BLOOD COUNT 4.89 10^6/uL (4.00-5.40); WHITE BLOOD COUNT 14.4 10^3/uL (4.0-10.0)
[2018-10-30] MEDS ORDERED: BUDESONIDE 0.5 MG/2 ML INHALATION SUSPENSION INH ONE (23:15)
[2018-10-30 23:24] LABS: ATYPICAL LYMPH 1 % (0-5); EOSINOPHILS 4 % (0-5); LYMPHOCYTES 36 % (16-52); MONOCYTES 7 % (0-8); NEUTROPHILS 52 % (35-75)
[2018-10-30 23:25] LABS: PLATELET ESTIMATE INCREASED (NORMAL)
[2018-10-30 23:30] LABS: BLOOD UREA NITROGEN 11 MG/DL (7-18); CALCIUM LEVEL 8.6 MG/DL (8.5-10.1); CARBON DIOXIDE LEVEL 27 MEQ/L (21-32); CHLORIDE LEVEL 108 MEQ/L (98-107); GLUCOSE, FASTING 113 MG/DL (70-100); POTASSIUM SERUM 4.1 MEQ/L (3.5-5.1); SODIUM LEVEL 142 MEQ/L (136-145)
[2018-10-31] VITALS (11 sets, daily range): BP systolic 125–148; BP diastolic 65–96
[2018-10-31 00:04] LABS: HCG, SERUM QUALITATIVE NEGATIVE (NEGATIVE)
[2018-10-31 00:18] LABS: VENOUS BASE EXCESS -4.3 (-2.0-2.0); VENOUS HCO3 26.7 MEQ/L (23.0-27.0); VENOUS O2 SATURATION 63.2 % (60.0-80.0); VENOUS PARTIAL PRESSURE CO2 78.3 mmHg (38.0-50.0); VENOUS PARTIAL PRESSURE O2 41.6 mmHg (30.0-50.0); VENOUS STANDARD HCO3 20.1 MEQ/L; VENOUS TOTAL CO2 29.1 MEQ/L (24.0-28.0)
[2018-10-31 00:59] LABS: ABG BASE EXCESS -5.8 (-2.0-2.0); ABG HCO3 19.5 MEQ/L (22.0-26.0); ABG O2 SATURATION 94.3 % (95.0-99.0); ABG PARTIAL PRESSURE CO2 37.8 mmHg (35.0-45.0); ABG PARTIAL PRESSURE O2 76.2 mmHg (75.0-100.0); ABG STANDARD HCO3 19.7 MEQ/L (22.0-26.0); ABG TOTAL CO2 20.7 MEQ/L (22.0-29.0); ABG pH (ARTERIAL) 7.331 UNITS (7.350-7.450)
[2018-10-31] MEDS ORDERED: BISACODYL 5 MG TAB PO PRN (01:45)
[2018-10-31] MEDS ORDERED: ONDANSETRON 4 MG TAB (S0181) PO PRN (01:45)
[2018-10-31] MEDS: NS 1,000 ML IV SCH ×2 (02:58→18:14)
[2018-10-31] MEDS ORDERED: ALBUTEROL SULFATE 2.5 MG/0.5 ML INH NEB SOLN NEB PRN (03:15)
[2018-10-31] MEDS: IPRATROPIUM 0.5MG/ALBUTEROL 2.5MG INH SOL UD 3ML (DUONEB)(J7620) NEB SCH ×2 (04:00→08:32)
[2018-10-31] MEDS: HEPARIN SOD (PORCINE) 5000 UNITS/ML VIAL SC SCH ×3 (05:33→21:52)
[2018-10-31 05:57] LABS: BASO % 0.2 % (0.0-1.0); EOS % 0.1 % (0.0-3.0); HEMATOCRIT 40.5 % (36.0-47.0); HEMOGLOBIN 13.2 g/dl (12.0-15.5); LYMPH # 0.5 10^3/uL (1.5-6.5); LYMPH % 2.9 % (24.0-44.0); MEAN CORPUSCULAR HEMOGLOBIN 28.4 pg (27.0-33.0); MEAN CORPUSCULAR HGB CONC 32.6 g/dl (32.0-36.5); MEAN CORPUSCULAR VOLUME 87.3 fl (80.0-96.0); MONO # 0.2 10^3/uL (0.0-0.8); MONO % 1.4 % (0.0-5.0); NEUTROPHILS # 15.6 10^3/uL (1.8-7.7); NEUTROPHILS % 95.2 % (36.0-66.0); PLATELET COUNT, AUTOMATED 402 10^3/uL (150-450); RED BLOOD COUNT 4.64 10^6/uL (4.00-5.40); WHITE BLOOD COUNT 16.4 10^3/uL (4.0-10.0)
[2018-10-31] MEDS ORDERED: methylPREDNISolone INJ 125 MG/2 ML VIAL (J2930) IV SCH (06:00)
[2018-10-31] MEDS ORDERED: NORG1TAB PO (06:20)
--- NOTE | 2018-10-31 06:26 | HPEPDOC ---
[facility] Medical History & Physical Date of Admission Oct 31, 2018 History and Physical CHIEF COMPLAINT: [asthma attack ] HISTORY OF PRESENT ILLNESS: This is a 22 yo female with hx of severe persistent asthma who presented to the ed for sob an URI symptoms. Patient said her boyfriend has been sick with uri symptoms and she started having similar symptoms 2 days ago. She said she is complaint with her home meds, but today she got progressively worse and had to come to the ed. She did not receive the flu shot this season. Associated symptoms include cough, without much sputum production, sob, wheezes, runny nose and some nasal congestion, some chills but no fever. ROS - all 14 point review of system is negative except for whats listed in HPI PAST MEDICAL HISTORY: severe persistent asthma PAST SURGICAL HISTORY: None ALLERGIES: No known drug allergies. SOCIAL HISTORY: Former smoker. Denies alcohol or illicit drug use. FAMILY HISTORY: GI cancer on her father's side of family Physical exam Gen: NAD, healthy appearing , HEENT: normocephalic, atraumatic, no discharge from ears or nose, no oropharyngeal erythema or exudate, neck is supple, no lymphadenopathy, trachea midline CVS: RRR, normal S1n S2, no murmur, rubs, or gallops, no edema, no jvd Resp: severe wheezes b/l anteriorly and posteriorly, mild-mod distress, has to catch her breath after 3 words, using some neck muscles, occasional semi wet cough Abd : soft nontender, normal bowel sounds, no rebound tenderness or guarding MSK: no swelling, full range of motion, strength 5/5 Neuro: AOAx3, no confusion, no focal deficit Psych: normal mood and affect, good judgment LABORATORY DATA: See below. IMAGING: MICROBIOLOGY: Please see below. ASSESSMENT and plan Asthma exacerbation s/p extensive treatment in ED with some improvement admit to ICU c/w iv steroid - methylpred - 60m, q6h- change as tolerated duoneb q4h pulmicort guaifenesin for cough oxygen supplement as needed consider pulm consult if patient doesn't improve dvt ppx gi ppx full code, from home , no svc Vital Signs Vital Signs Date Time Temp Pulse Resp B/P (MAP) Pulse Ox O2 Delivery O2 Flow Rate FiO2 10/31/18 05:15 15.0 10/31/18 05:00 98.2 110 28 148/96 (113) 96 10/31/18 00:26 High Flow Mask Laboratory Data Labs 24H Laboratory Tests 2 10/30/18 22:54: White Blood Count 14.4H, Red Blood Count 4.89, Hemoglobin 14.0, Hematocrit 44.3, Mean Corpuscular Volume 90.6, Mean Corpuscular Hemoglobin 28.6, Mean Corpuscular Hemoglobin Concent 31.6L, Red Cell Distribution Width 14.1, Platelet Count 478H, Lymphocytes # (Auto) , Nucleated Red Blood Cells % (auto) 0.0, Neutrophils 52, Lymphocytes (Manual) 36, Monocytes (Manual) 7, Eosinophils (Manual) 4, Atypical Lymphocytes 1, Platelet Estimate INCREASED, Red Blood Cell Morphology NORMAL, Anion Gap 7L, Blood Urea Nitrogen 11, Creatinine 0.80, Sodium Level 142, Potassium Level 4.1, Chloride Level 108H, Carbon Dioxide Level 27, Calcium Level 8.6, Human Chorionic Gonadotropin, Qual NEGATIVE 10/30/18 23:59: Blood Gas Bicarbonate Standard 20.1, Venous Blood pH 7.150L, Venous Blood Partial Pressure CO2 78.3H, Venous Blood Partial Pressure O2 41.6, Venous Blood Total Carbon Dioxide 29.1H, Venous Blood HCO3 26.7, Venous Blood Oxygen Saturation 63.2, Venous Blood Base Excess -4.3L 10/31/18 05:36: White Blood Count 16.4H, Red Blood Count 4.64, Hemoglobin 13.2, Hematocrit 40.5, Mean Corpuscular Volume 87.3, Mean Corpuscular Hemoglobin 28.4, Mean Corpuscular Hemoglobin Concent 32.6, Red Cell Distribution Width 14.1, Platelet Count 402, Lymphocytes # (Auto) 0.5L, Nucleated Red Blood Cells % (auto) 0.0, Immature Granulocyte % (Auto) 0.2, Neutrophils (%) (Auto) 95.2H, Lymphocytes (%) (Auto) 2.9L, Monocytes (%) (Auto) 1.4, Eosinophils (%) (Auto) 0.1, Basophils (%) (Auto) 0.2, Neutrophils # (Auto) 15.6H, Monocytes # (Auto) 0.2, Eosinophils # (Auto) 0.0, Basophils # (Auto) 0.0 CBC/BMP Laboratory Tests 10/30/18 22:54 Red Blood Count 4.89, Mean Corpuscular Volume 90.6, Mean Corpuscular Hemoglobin 28.6, Mean Corpuscular Hemoglobin Concent 31.6 L, Red Cell Distribution Width 14.1, Lymphocytes # (Auto) , Calcium Level 8.6 10/31/18 05:36 Red Blood Count 4.64, Mean Corpuscular Volume 87.3, Mean Corpuscular Hemoglobin 28.4, Mean Corpuscular Hemoglobin Concent 32.6, Red Cell Distribution Width 14.1, Lymphocytes # (Auto) 0.5 L, Neutrophils (%) (Auto) 95.2 H, Lymphocytes (%) (Auto) 2.9 L, Monocytes (%) (Auto) 1.4, Eosinophils (%) (Auto) 0.1, Basophils (%) (Auto) 0.2, Neutrophils # (Auto) 15.6 H, Monocytes # (Auto) 0.2, Eosinophils # (Auto) 0.0, Basophils # (Auto) 0.0 Microbiology Microbiology 10/30/18 Respiratory Virus Panel (PCR) ([facility]) - Final, Complete Home Medications Scheduled Albuterol/Ipratropium (Ipratropium [place]/Albut 0.5-2.5 (3) mg/3Ml) 1 [place], 1 VIAL INH QID Montelukast Sodium (Montelukast Sodium) 10 Mg Tab, 10 MG PO QHS Salmeterol/Fluticasone (Advair Diskus 250-50 Mcg/Dose) 14 Puff/Inhaler Aerp, 1 PUFF INH BID Scheduled PRN Albuterol Sulfate (Ventolin Hfa) 108 Mcg/Act Aer, 2 PUFFS INH Q4H PRN for SHORTNESS OF BREATH Allergies Coded Allergies: No Known Allergies (Unverified , 07/03/18) LAZARUS HAYWARD MD Oct 31, 2018 06:26
[2018-10-31 06:30] LABS: BLOOD UREA NITROGEN 11 MG/DL (7-18); CALCIUM LEVEL 8.9 MG/DL (8.5-10.1); CARBON DIOXIDE LEVEL 21 MEQ/L (21-32); CHLORIDE LEVEL 108 MEQ/L (98-107); CREATININE FOR GFR 0.97 MG/DL (0.55-1.30); GLUCOSE, FASTING 170 MG/DL (70-100); MAGNESIUM LEVEL 2.4 MG/DL (1.8-2.4); POTASSIUM SERUM 3.8 MEQ/L (3.5-5.1); SODIUM LEVEL 140 MEQ/L (136-145); THYROID STIMULATING HORMONE 0.138 uIU/ML (0.463-3.98)
--- NOTE | 2018-10-31 06:52 | ECGEPIP ---
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
[2018-10-31] MEDS ORDERED: BUDESONIDE 0.25 MG/2 ML INHALATION SUSPENSION INH SCH (08:00)
[2018-10-31 08:16] LABS: ABG BASE EXCESS -5.9 (-2.0-2.0); ABG HCO3 18.2 MEQ/L (22.0-26.0); ABG O2 SATURATION 94.2 % (95.0-99.0); ABG PARTIAL PRESSURE CO2 31.9 mmHg (35.0-45.0); ABG PARTIAL PRESSURE O2 71.3 mmHg (75.0-100.0); ABG STANDARD HCO3 19.6 MEQ/L (22.0-26.0); ABG TOTAL CO2 19.2 MEQ/L (22.0-29.0); ABG pH (ARTERIAL) 7.374 UNITS (7.350-7.450)
[2018-10-31] MEDS: guaiFENesin ER 600 MG TAB PO SCH ×2 (08:34→21:52)
[2018-10-31] MEDS: PANTOPRAZOLE 40MG TAB (PROTONIX) PO SCH (08:34)
--- NOTE | 2018-10-31 09:29 | REP ---
Chest x-ray: Single view: History: Shortness of breath. Comparison study: September 24, 2018. Findings: EKG monitoring electrodes overlie the chest along with oxygen delivery tubing. Lungs are well inflated and clear. Pleural angles are sharp. Heart size is normal. Pulmonary vasculature is not increased. No significant bony abnormality is seen. Impression: No active disease. Electronically Signed by Gregg Alvarenga MD 10/31/2018 11:29 A
[2018-10-31] MEDS: ACETAMINOPHEN TAB 650MG DOSE (2X325MG) PO PRN ×2 (10:25→10:55)
[2018-10-31] MEDS: ALBUTEROL SULFATE 2.5 MG/0.5 ML INH NEB SOLN INH SCH ×3 (11:48→21:52)
[2018-10-31] MEDS: methylPREDNISolone INJ 40 MG/1 ML VIAL (J2920) IV SCH ×2 (13:25→21:52)
[2018-10-31] MEDS: ADVAIR HFA 230/21MCG INHALER INH SCH (20:00)
[2018-10-31] MEDS ORDERED: MONTELUKAST 10 MG TAB PO SCH (21:00)
[2018-11-01] MEDS: methylPREDNISolone INJ 40 MG/1 ML VIAL (J2920) IV SCH (05:35)
[2018-11-01] MEDS: HEPARIN SOD (PORCINE) 5000 UNITS/ML VIAL SC SCH (05:35)
[2018-11-01 06:00] VITALS: BP 116/70
[2018-11-01] MEDS: ADVAIR HFA 230/21MCG INHALER INH SCH (07:53)
[2018-11-01] MEDS: ALBUTEROL SULFATE 2.5 MG/0.5 ML INH NEB SOLN INH SCH ×3 (07:55→11:19)
[2018-11-01] MEDS: PANTOPRAZOLE 40MG TAB (PROTONIX) PO SCH (09:07)
[2018-11-01] MEDS: guaiFENesin ER 600 MG TAB PO SCH (09:07)
[2018-11-01 09:21] LABS: FREE T4 1.15 NG/DL (0.78-1.33); THYROID STIMULATING HORMONE 0.181 uIU/ML (0.463-3.98)
[2018-11-01] MEDS: NS 1,000 ML IV SCH (09:36)
[2018-11-01 10:19] LABS: TOTAL T3 103.5 NG/DL (86.0-192.0)
[2018-11-01] MEDS ORDERED: PRED10TA2 PO (12:38)
== END 2018-11-01 14:00 | disposition home or self-care (01) | DRG 203 ==
LOC: M ED 22:25 → M ED INP 10-31 01:34 → M ICU 10-31 05:03 → M MS5PR 10-31 17:14
PROVIDERS: ADMIT Internal Medicine; ATTEND Internal Medicine
DX: J45.901 Unspecified asthma with (acute) exacerbation (principal); Z79.899 Other long term (current) drug therapy

== ENCOUNTER 2018-12-08 13:40 | Emergency (ER) | payer OTHER, MEDICAID ==
[~2018-12-08] VITALS: Ht 170.2 cm; Wt 90.9 kg
[~2018-12-08 13:40] MED LIST changes: +HYDR-3715 PO; -NORCOTAB PO; +NORG1TAB PO
[2018-12-08] MEDS: IPRATROPIUM 0.5MG/ALBUTEROL 2.5MG INH SOL UD 3ML (DUONEB)(J7620) NEB PRN ×2 (14:42→16:32)
--- NOTE | 2018-12-08 15:05 | REP ---
HISTORY: Cough and dyspnea. COMPARISON: 10/31/2018 The technique utilized in obtaining the radiograph has magnified the cardiac silhouette and accentuated the interstitial markings. The heart size has increased compared to the prior examination, although accentuated by technique. The interstitial markings appear to have diffusely increased compared to the prior exam with evidence of pulmonary vascular redistribution. There are no patchy opacities or pleural effusions. The osseous structure is stable and intact. IMPRESSION: Cardiomegaly and possible mild interstitial edema. Technical factors as described above. PA and lateral views of the chest should be considered. Electronically Signed by Eric Flores DO 12/08/2018 04:38 P
[2018-12-08 16:27] LABS: BASO # 0.1 10^3/uL (0.0-0.2); BASO % 0.3 % (0.0-1.0); EOS # 0.2 10^3/uL (0.0-0.50); EOS % 0.9 % (0.0-3.0); HEMATOCRIT 44.5 % (36.0-47.0); HEMOGLOBIN 14.2 g/dl (12.0-15.5); LYMPH # 1.4 10^3/uL (1.5-6.5); LYMPH % 6.8 % (24.0-44.0); MEAN CORPUSCULAR HEMOGLOBIN 28.5 pg (27.0-33.0); MEAN CORPUSCULAR HGB CONC 31.9 g/dl (32.0-36.5); MEAN CORPUSCULAR VOLUME 89.2 fl (80.0-96.0); MONO # 0.7 10^3/uL (0.0-0.8); MONO % 3.4 % (0.0-5.0); NEUTROPHILS # 17.7 10^3/uL (1.8-7.7); NEUTROPHILS % 87.9 % (36.0-66.0); PLATELET COUNT, AUTOMATED 440 10^3/uL (150-450); RED BLOOD COUNT 4.99 10^6/uL (4.00-5.40); WHITE BLOOD COUNT 20.2 10^3/uL (4.0-10.0)
[2018-12-08 16:49] LABS: BLOOD UREA NITROGEN 8 MG/DL (7-18); CALCIUM LEVEL 8.9 MG/DL (8.5-10.1); CARBON DIOXIDE LEVEL 31 MEQ/L (21-32); CHLORIDE LEVEL 106 MEQ/L (98-107); CREATININE FOR GFR 0.69 MG/DL (0.55-1.30); GLUCOSE, FASTING 101 MG/DL (70-100); POTASSIUM SERUM 4.5 MEQ/L (3.5-5.1); SODIUM LEVEL 140 MEQ/L (136-145)
[2018-12-08] MEDS ORDERED: ALBU17IN2 INH (18:12)
[2018-12-08] MEDS ORDERED: MEDR4PAK PO (18:12)
[2018-12-08 18:59] VITALS: BP 112/78
--- NOTE | 2018-12-08 19:50 | ECGEPIP ---
Stationary ECG Study [facility] - ED Test Date: 2018-12-08 Pat Name: JENNY CHE Department: Room: - Gender: F [employer]ing [employer]er: : 1995 Requested By: MARIBEL Olson Order Number: [id number] Reading MD: Florentin Valentin Measurements Intervals [place] Rate: 76 P: 49 HI: 125 QRS: 88 QRSD: 81 T: 72 QT: 356 QTc: 401 Interpretive Statements SINUS RHYTHM WITH SINUS ARRHYTHMIA NONSPECIFIC ST T WAVE CHANGES CW 10/30/[address] T WAVE CHANGES Electronically Signed On 12-08-2018 19:50:16 EDT by Florentin Valentin
--- NOTE | 2018-12-11 15:14 | ED PDOC ---
Post-Departure Follow-Up harshad lyons faxed formal report of cxr for fu Florentin Pearson MD December 11, 2018 15:14
== END 2018-12-08 19:05 | disposition home or self-care (01) ==
LOC: EDBD 13:40 → M ED 13:40
DX: J45.901 Unspecified asthma with (acute) exacerbation (principal); F17.210 Nicotine dependence, cigarettes, uncomplicated

== ENCOUNTER 2018-12-18 09:34 | Emergency (ER) | payer OTHER, MEDICAID ==
[~2018-12-18] VITALS: Ht 167.6 cm; Wt 81.8 kg
[~2018-12-18 09:34] MED LIST changes: +ALBU17IN2 INH; +MEDR4PAK PO
[2018-12-18] MEDS: IPRATROPIUM 0.5MG/ALBUTEROL 2.5MG INH SOL UD 3ML (DUONEB)(J7620) NEB SCH ×3 (09:45→10:25)
--- NOTE | 2018-12-18 10:08 | REP ---
Chest two views HISTORY: Asthma Comparison: 12/08/2018 Minimal peribronchial cuffing is present. The heart is normal in size. The pulmonary vasculature is normal in appearance. The bony structure is intact. IMPRESSION: There is minimal peribronchial cuffing that may represent asthma. Electronically Signed by Prakash Hernandez MD 12/18/2018 10:00 A
[2018-12-18 11:45] VITALS: BP 139/85
== END 2018-12-18 11:56 | disposition home or self-care (01) ==
LOC: M ED 09:34
DX: J45.901 Unspecified asthma with (acute) exacerbation (principal)

== ENCOUNTER 2019-01-02 15:11 | Emergency (ER) | payer OTHER, MEDICAID ==
[~2019-01-02] VITALS: Ht 170.2 cm; Wt 68.2 kg
[2019-01-02 15:22] VITALS: BP 133/93
[2019-01-02] MEDS ORDERED: VENTAER INH (15:42)
[2019-01-02] MEDS ORDERED: CETI10CA2 PO (15:43)
[2019-01-02] MEDS ORDERED: IPRA0.00 NEB (15:44)
[2019-01-02] MEDS ORDERED: ALBU83IN NEB (15:44)
[2019-01-02] MEDS ORDERED: PRED20TA PO (15:45)
[2019-01-02] MEDS ORDERED: ADV250INH INH (16:27)
== END 2019-01-02 16:15 | disposition home or self-care (01) ==
LOC: M ED 15:11
DX: J45.901 Unspecified asthma with (acute) exacerbation (principal); Z79.899 Other long term (current) drug therapy; Z87.891 Personal history of nicotine dependence

== ENCOUNTER → 2019-01-31 | Outpatient (REF) | payer OTHER, MEDICAID ==
[~2019-01-31] MED LIST changes: +ALBU83IN NEB; +CETI10CA2 PO
[2019-01-31 13:39] LABS: BASO % 0.8 % (0.0-1.0); EOS # 0.4 10^3/uL (0.0-0.50); EOS % 8.4 % (0.0-3.0); HEMATOCRIT 41.9 % (36.0-47.0); HEMOGLOBIN 13.6 g/dl (12.0-15.5); LYMPH # 2.1 10^3/uL (1.5-6.5); LYMPH % 44.3 % (24.0-44.0); MEAN CORPUSCULAR HEMOGLOBIN 29.1 pg (27.0-33.0); MEAN CORPUSCULAR HGB CONC 32.5 g/dl (32.0-36.5); MEAN CORPUSCULAR VOLUME 89.5 fl (80.0-96.0); MONO # 0.5 10^3/uL (0.0-0.8); NEUTROPHILS # 1.7 10^3/uL (1.8-7.7); NEUTROPHILS % 36.3 % (36.0-66.0); PLATELET COUNT, AUTOMATED 324 10^3/uL (150-450); RED BLOOD COUNT 4.68 10^6/uL (4.00-5.40); WHITE BLOOD COUNT 4.8 10^3/uL (4.0-10.0)
[2019-01-31 13:55] LABS: AMORPHOUS SEDIMENT LARGE (NEGATIVE); APPEARANCE, URINE TURBID (CLEAR); BACTERIA, URINE AUTO NEGATIVE (NEGATIVE); BILIRUBIN, URINE AUTO NEGATIVE (NEGATIVE); BLOOD, URINE BLOOD NEGATIVE (NEGATIVE); GLUCOSE, URINE (UA) AUTO NEGATIVE (NEGATIVE); KETONE, URINE AUTO 1+ mg/dL (NEGATIVE); LEUKOCYTE ESTERASE, URINE AUTO NEGATIVE (NEGATIVE); MUCUS, URINE LARGE (NEGATIVE); NITRITE, URINE AUTO NEGATIVE (NEGATIVE); PROTEIN, URINE AUTO NEGATIVE (NEGATIVE); RBC, URINE AUTO 0 /HPF (0-3); SPECIFIC GRAVITY URINE AUTO 1.028 (1.002-1.035); SQUAMOUS EPITHELIAL CELL UR AU 0 /HPF (0-6); UROBILINOGEN, URINE AUTO 0.2 mg/dL (0.0-2.0); WBC, URINE AUTO 0 /HPF (0-3)
[2019-01-31 13:56] LABS: COLOR, URINE YELLOW (YELLOW)
[2019-01-31 13:59] LABS: HEMOGLOBIN A1c 6.1 %
[2019-01-31 14:09] LABS: ALBUMIN 3.7 GM/DL (3.2-5.2); ALT/SGPT 16 U/L (12-78); BILIRUBIN,TOTAL 0.5 MG/DL (0.2-1.0); BLOOD UREA NITROGEN 15 MG/DL (7-18); CARBON DIOXIDE LEVEL 23 MEQ/L (21-32); CHLORIDE LEVEL 110 MEQ/L (98-107); CHOLESTEROL LEVEL 222 MG/DL (<200); CHOLESTEROL RISK RATIO 3.639 (<5); CREATININE FOR GFR 0.78 MG/DL (0.55-1.30); FREE T4 1.04 NG/DL (0.76-1.46); GLOMERULAR FILTRATION RATE > 60.0 (>60); GLUCOSE, FASTING 84 MG/DL (70-100); HDL CHOLESTEROL 61 MG/DL (>40); LDL CHOLESTEROL 148 MG/DL (<100); NON-HDL-C 161 MG/DL; POTASSIUM SERUM 4.1 MEQ/L (3.5-5.1); SODIUM LEVEL 140 MEQ/L (136-145); THYROID STIMULATING HORMONE 0.688 uIU/ML (0.358-3.740); TOTAL PROTEIN 7.1 GM/DL (6.4-8.2); TRIGLYCERIDES LEVEL 65 MG/DL (<150)
[2019-01-31 14:12] LABS: TOTAL 25(OH) VITAMIN D 8.2 NG/ML (30.0-100.0)
[2019-02-02 00:11] LABS: Lyme Disease IgG/IgM Antibodie <0.91 ISR (0.00-0.90); Lyme Disease IgM Ab Quantitati <0.80 index (0.00-0.79)
== END ==
LOC: M LAB REF 12:54
PROVIDERS: ATTEND Family Medicine
DX: R14.0 Abdominal distension (gaseous) (principal); K59.09 Other constipation; Z00.01 Encounter for general adult medical examination with abnormal findings